=== PATIENT | male | born 1985 | race Caucasian/White ===

== ENCOUNTER → 2021-05-11 17:04 | Outpatient (CLI) | payer OTHER, SELFPAY ==
[2021-05-11 17:56] LABS: Semen Sperm Prescence Post-Vas Absent (ABSENT); Sperm Count 0 x10^6/mL (20-150)
== END ==
PROVIDERS: PCP Family Medicine; Referring Provider Family Medicine; Visit Provider Family Medicine
DX: Z30.2 Encounter for sterilization (principal); Z30.8 Encounter for other contraceptive management
CPT/HCPCS: 89321

== ENCOUNTER → 2023-05-04 14:59 | Outpatient (CLI) | payer OTHER, SELFPAY ==
[2023-05-04 15:28] LABS: Add Manual Diff / Slide Review NO; Basophils Absolute Auto 0 /uL (0-100); Basophils Percent Auto 0.8 % (0-2); Eosinophils Absolute Auto 100 /uL (0-450); Eosinophils Percent Auto 1.6 % (2-4); Hemoglobin 15.4 g/dL (13.5-17.5); Lymphocytes Absolute Auto 2400 /uL (1100-4500); Lymphocytes Percent Auto 39.9 % (25-40); Mean Corpuscular HGB Conc 34.3 % (30-36); Mean Corpuscular Hemoglobin 30.5 PG (26-34); Monocytes Absolute Auto 400 /uL (0-900); Monocytes Percent Auto 5.9 % (3-14); Neutrophils Absolute Auto 3200 /uL (1500-7000); Neutrophils Percent Auto 51.8 % (50-75); Platelet Count 237 X10^3/uL (150-400); Red Blood Cell Count 5.06 X10^6/uL (4.5-5.9); Red Cell Distribution Width 12.7 % (11.6-14.8); White Blood Cell Count 6.1 X10^3/uL (4.5-11.0)
[2023-05-04 16:00] LABS: Alanine Aminotransferase 22 IU/L (<50); Albumin 4.6 g/dL (3.5-5.0); Albumin Globulin Ratio 1.4 (1.0-2.8); Alkaline Phosphatase 53 U/L (38-126); Aspartate Aminotransferase 21 IU/L (17-59); BUN Creatinine Ratio 13.5 (6-22); Bilirubin Total 0.9 mg/dL (0.2-1.3); Blood Urea Nitrogen 15 mg/dL (9-20); Calcium 9.6 mg/dL (8.4-10.2); Carbon Dioxide 27 mmol/L (22-32); Chloride 106 mmol/L (98-107); Cholesterol 223 mg/dL (140-199); Estimated Glomerular Filt Rate > 60 mL/min (>60); Globulin 3.4 g/dL (1.7-4.1); Glucose 102 mg/dL (70-100); HDL Cholesterol 44 mg/dL (40-60); HEMOLYSIS < 15 (0-50); LDL Cholesterol Calculated 160 mg/dL (<100); Potassium 4.4 mmol/L (3.4-5.1); Sodium 138 mmol/L (137-145); Triglycerides 97 mg/dL (35-150)
[2023-05-04 16:26] LABS: TSH w/ Reflex to FT4 2.12 uIU/mL (0.47-4.68)
[2023-05-04 17:42] LABS: Creatinine Urine Random 43.2 mg/dL
[2023-05-04 17:55] LABS: Microalbumin Urine Random < 0.6 mg/dL (0-1.6)
[2023-05-05 04:10] LABS: Apolipoprotein B 125 mg/dL (<90)
== END ==
PROVIDERS: PCP Family Medicine; Referring Provider Family Medicine; Visit Provider Family Medicine
DX: Z00.01 Encounter for general adult medical examination with abnormal findings (principal); L30.1 Dyshidrosis [pompholyx]; E66.9 Obesity, unspecified
CPT/HCPCS: 36415; 80053; 80061; 82043; 82172; 82570; 84443; 85025

== ENCOUNTER 2025-01-03 09:17 | Day surgery (SDC) | payer OTHER, SELFPAY ==
[2025-01-01 12:24] VITALS: BMI 31.1
--- NOTE | 2025-01-03 | PATH_ITS ---
[facility] Accession Number: [id number] No. of containers..02 Tissue . 01 Material submitted: . PART A: esophagus, E-G Junction - GE JUNCTION BIOPSIES PART B: esophagus - ESOPHAGUS, UPPER . 01 Diagnosis: A. GASTROESOPHAGEAL JUNTION, BIOPSY: Squamous mucosa with ulceration and erosive esophagitis and increased eosinophils, up to 16 per high-power field, see comment. Negative for fungal organisms and viral cytopathic effects. Columnar component not present for evaluation. Negative for dysplasia and malignancy. . B. UPPER ESOPHAGUS, BIOPSY: Squamocolumnar junctional mucosa with intestinal metaplasia, reflux changes, and scattered eosinophils, see comment. Negative for dysplasia and malignancy. [facility] 01/14/2025 1611 Local . 01 Comment: Part A: A PAS stain is negative for fungal organisms. Immunohistochemistry for CMV and HSV is performed on block A1 and both are negative. Regarding the eosinophils, 16 per high-power field does meet minimum diagnostic criteria to suggest mild eosinophilic esophagitis, however given the concurrent ulceration and active inflammation, is it difficult to say for certain if this is the cause of the ulceration/inflammation or due to the ulceration/inflammation. Additionally, there is overlap between histologic features of reflux disease and eosinophilic esophagitis, especially in the lower esophagus, although 16 per high-power field is more than what would be expected for reflux disease. . Part B: These upper esophageal biopsies contain squamocolumnar mucosa, indicative of either an inlet patch with intestinal metaplasia or this sample could actually represent the gastroesophageal junction with intestinal metaplasia. The latter possibility would also explain the lack of columnar epithelium in part A. Also, the presence of scattered eosinophils, up to 7 per high-power field in this part, can be seen in reflux disease, especially in the lower esophagus/gastroesophageal junction. Given the high number of eosinophils present in part A, this may represent involvement by early or evolving eosinophilic esophagitis. . Clinical correlation is recommended for assessment of possible eosinophilic esophagitis. . 01 Electronically signed: . Nataliya Pham DO, Pathologist NPI- [id number] . 01 Gross description: . Received two formalin-filled containers, both labeled with the patient's name: . A. In a container labeled GE junction. Specimen consists of three fragments of cisneros, soft tissue which range in size from 0.1 x 0.1 x 0.1 cm to 0.3 x 0.2 x 0.1 cm. All fragments are totally submitted in cassette A. B. In a container labeled upper esophagus. Specimen consists of multiple fragments of cisneros, soft tissue which range in size from less than 0.1 cm to 0.4 x 0.2 x 0.1 cm. All fragments are totally submitted in cassette B. ([id number]) /ALAYNA 01/08/2025 [facility] Local . 01 Pathologist provided ICD-10: R13.10 . 01 CPT . 355191, 436911, 427020, [id number], [id number] Specimen Comment: A courtesy copy of this report has been sent to [phone] Performed at: [address] [address], [place], [place] [id number] MD Segundo Berkowitz MD Phone: [phone]
[2025-01-03] MEDS: LACTATED RINGERS 1,000 ML 42 ML IV (09:38)
[2025-01-03 09:43] VITALS: BP 131/82; PULSE 63; RESP 16; TEMP 36.8; O2SAT 99
--- NOTE | 2025-01-03 10:57 | PM.HP.IH.1 ---
History of Present Illness History of Present Illness Date Patient Seen: 01/03/25 Time Patient Seen: 10:57 Chief complaint: SDC Narrative: Surjit is a 39-year-old man who has had a foreign body sensation in his posterior pharynx for the past 2-3 months. He believes he has gum stuck there. He denies difficulty swallowing. [facility] Medical History (Updated 01/03/25 @ 10:57 by Tavo Luo MD) Chicken pox (~1989) Encounter for vasectomy Encounter for vasectomy counseling Surgical History (Updated 06/01/23 @ 18:20 by Margo Eaton) Anesthesia H/O inguinal hernia repair (~2005) Social History Smoking Status: Former smoker alcohol intake: current substance use type: does not use Meds Home Medications and Allergies Home Medications ?Medication ?Instructions ?Recorded ?Confirmed ?Type triamcinolone acetonide 0.1 % 1 applic topical BID PRN 12/19/24 History topical cream Allergies Allergy/AdvReac Type Severity Reaction Status Date / Time No Known Drug Allergies Allergy Unverified 12/19/24 14:03 Exam Vital Signs (past 8 hours): - 01/03/25 09:43 Temperature 98.2 F Pulse Rate 63 Respiratory Rate 16 Blood Pressure 131/82 Pulse Oximetry 99 Oxygen Delivery Method Room Air Oxygen Delivery Method Room Air Const General: healthy appearing Assessment & Plan Assessment and plan (1) Foreign body sensation, throat: Status: Acute Plan We discussed the limitations of esophagogastroduodenoscopy for evaluating the pharynx. He would like to start with a laryngoscopy performed by Sascha Luu CRNA to see if there was gum or some other abnormality in the posterior pharynx. If and only if no abnormalities are seen in the posterior oropharynx we will then proceed with an esophagogastroduodenoscopy to evaluate the rest of his upper GI tract. Time-Based Coding :: [TOTAL MINUTES] spent with patient and on the chart (including review of chart, obtaining history, exam, reviewing outside data, placing orders, documenting exam and treatment plan, and counseling patient) on [DATE]. [employer] Document charge(s): No
--- NOTE | 2025-01-03 11:25 | PM.OP.EGD ---
Operative Date/Time/Diagnoses Date of procedure: 01/03/25 Time of procedure: : Pre-op diagnosis: Globus sensation Post-op diagnosis: same Procedure & Clinicians Study performed: Esophagogastroduodenoscopy Same procedure(s) as scheduled: Yes Surgeon: Tavo Luo Anesthesia Type: MAC +/- Procedure Notes Procedure in detail: Surgeon: Tavo Luo MD Anesthesia: Sascha Luu CRNA First the patient underwent video laryngoscopy by Sascha Luu CRNA with light sedation. No obvious abnormalities were seen in the posterior oropharynx. There was no foreign body. A timeout was performed. A bite blocked was placed. The patient was positioned in the left lateral decubitus position. Anesthesia was administered. The endoscope was inserted through the bite block and passed through the esophagus and stomach and into the duodenum. The duodenal mucosa appeared normal. The scope was withdrawn into the duodenal bulb and no abnormalities were seen. The scope was withdrawn into the stomach. There was no evidence of ulcers or antritis. The scope was retroflexed and a small hiatal hernia was noted. The scope was withdrawn into the esophagus and the hiatal hernia was measured between 39 cm and 43 cm. There was some inflamed mucosa at the GE junction and biopsies were taken from the GE junction with the cold forceps. There were some abnormal appearing plaques in the upper esophagus near the upper esophageal sphincter and biopsies were taken with cold forceps. The scope was withdrawn. The patient was awakened and brought to recovery. Sedation time: 20 minutes Findings: No foreign body in the posterior oropharynx, small hiatal hernia measuring approximately cm, inflamed mucosa at the GE junction and abnormal plaque-like lesions in the upper esophagus Estimated Blood Loss: 5 Complications: none Post-procedure Disposition: PACU
[2025-01-03 11:28] VITALS: BP 108/57; PULSE 71; RESP 16; TEMP 36.9; O2SAT 97
[2025-01-03 11:30] VITALS: BP 102/56; PULSE 66; RESP 16; O2SAT 95
[2025-01-03 11:36] VITALS: BP 113/74; PULSE 68; RESP 16; TEMP 36.9; O2SAT 97
[2025-01-03 11:42] VITALS: BP 105/67; PULSE 58; RESP 16; O2SAT 99
== END 2025-01-03 11:59 | disposition home or self-care (01) ==
PROVIDERS: PCP Family Medicine; Referring Provider Surgery; Visit Provider Surgery
PROC: 0DJ08ZZ Inspection of Upper Intestinal Tract, Via Natural or Artificial Opening Endoscopic (ICD-10-PCS; CPT 43239; principal; 2025-01-03 10:30)
DX: K22.10 Ulcer of esophagus without bleeding (principal); K44.9 Diaphragmatic hernia without obstruction or gangrene; Z87.891 Personal history of nicotine dependence; K31.A0 Gastric intestinal metaplasia, unspecified
CPT/HCPCS: 43239; J2704; J3010; J7120